=== PATIENT | female | born 1980 | race Two or more races ===

== ENCOUNTER → 2019-12-27 | Outpatient (CLI) | payer BC ==
--- NOTE | 2019-12-27 18:57 | KCIC ---
Bilateral digital screening mammograms: Reason for examination: Routine baseline screening. Interpretation was made with the benefit of CAD. The skin and nipples show no abnormalities. No abnormal axillary lymph nodes are seen. The breast parenchyma is extremely dense. (Breast density: Category D) There are clustered calcifications seen posterior laterally in the right breast on cc view possibly at the 7:00 position. Recommend further evaluation with coned magnification views in CC and true lateral projections. There are no other dominant masses, suspicious calcifications or architectural distortion. Additional scattered benign-appearing calcifications are seen. Impression: Clustered calcifications in the right breast posteriorly at the 7:00 position posteriorly. Recommend further evaluation with coned magnification views in CC and true lateral projections. Your patient's mammogram demonstrates that she has dense breast tissue (breast density category C or D), which could hide abnormalities, and if she has other risk factors for breast cancer that have been identified, she might benefit from supplemental screening tests that may be suggested by you as her ordering physician. Dense breast tissue, in and of itself, is a relatively common condition. Therefore, this information is not provided to cause undue concern, but rather to raise your awareness and to promote discussion with your patient regarding the presence of other risk factors, in addition to dense breast tissue. Your patient's mammography results will be sent to her. BI-RADS Category 0: Incomplete. Needs additional imaging evaluation. "Our facility is accredited by the [employer] Mammography [employer]." This patient's information has been entered into a reminder system for the patient to be notified with the results of her examination and a target date for the next mammogram. Electronically signed by: Shawna Aguilar MD (12/27/2019 6:54 PM) [email or web address]
== END | disposition home or self-care (01) ==
LOC: KCIC MAMMO 10:39
PROVIDERS: ATTEND Family Medicine
DX: Z12.31 Encounter for screening mammogram for malignant neoplasm of breast (principal); N64.89 Other specified disorders of breast
CPT/HCPCS: 77067

== ENCOUNTER → 2020-02-03 | Outpatient (CLI) | payer BC ==
--- NOTE | 2020-02-04 12:47 | KCIC ---
Right breast diagnostic digital mammograms: Reason for examination: Calcifications on screening mammogram. Comparison is made to mammographic exam dated 12/27/2019. Coned magnification views were obtained in CC and lateral projection. There are clustered calcifications at the 11:00 position anteriorly which do not layer and DCIS cannot be excluded. IMPRESSION: Clustered calcifications at the 11:00 position anteriorly in the right breast. Recommend further evaluation with stereotactic biopsy. BI-RADS Category 4: Suspicious. These findings were discussed with the patient and she was instructed to follow-up with her clinician and the patient's physician will be called and notified about these findings. "Our facility is accredited by the [employer] Mammography [employer]." Electronically signed by: Shawna Aguilar MD (02/04/2020 12:44 PM) [id number]
== END ==
LOC: KCIC MAMMO 12:58
PROVIDERS: ATTEND Nurse Practitioner Gerontology
DX: R92.1 Mammographic calcification found on diagnostic imaging of breast (principal)
CPT/HCPCS: 77065

== ENCOUNTER → 2020-03-06 | Outpatient (CLI) | payer BC ==
--- NOTE | 2020-03-06 16:20 | RAD ---
Examination: 1. Ultrasound-guided right breast core needle biopsy. 2. Periprocedural diagnostic right mammogram. INDICATION: 39-year-old woman with right breast calcifications recalled from baseline screening are recommended for biopsy. COMPARISON: Bilateral baseline screening mammogram of 12/27/2019 and right diagnostic mammogram of 02/03/2020. TECHNIQUE AND FINDINGS: Following review of the screening and right diagnostic mammogram, for periprocedural planning in order to optimizing the approach for tissue sampling if indicated, I elected to have a targeted ultrasound performed of the outer right breast in search of a sonographic correlate to the calcifications and for any mammographically occult solid masses that might also serve as amenable targets for core needle biopsy in this patient with extremely dense breasts. I found numerous cysts, some of which had layering echogenic reflectors suggestive of layering milk of calcium. In addition, at the right 11:00 position 1 cm from the nipple, a solid, mildly hypoechoic oval 8 mm mass was also identified with parallel orientation and indistinct margins that could represent a fibroadenoma but was mildly suspicious. For mammographic and sonographic correlation, I had the skin marked at the site of this sonographic finding and a BB placed over the skin marker with a true lateral view of the right breast and a tangential view obtained. True lateral view obtained today better demonstrated layering milk of calcium as expected for multiple cysts as seen on ultrasound. Therefore, pursuit of the calcifications for biopsy was deferred in favor of further evaluation of the sonographic mass which remain mammographically occult on the additional diagnostic views obtained at this visit. Therefore, I elected to proceed with biopsy of the sonographic finding following a discussion of the risks benefits and alternatives to the patient and obtaining her informed consent. Using standard sterile technique, ultrasound guidance and local anesthesia, I advanced a 14-gauge spring-loaded core needle biopsy to the mass and obtained 2 14-gauge core biopsy samples with use of a coaxial guide. There was some oozing from the needle guide that quickly resolved and the patient did experience minor discomfort during application of local anesthesia, all of which was adequately treated at the conclusion of local anesthetic application. I deployed in an S-shaped biopsy marker at the site of biopsy, and after ensuring hemostasis with direct breast compression for 10 minutes, we obtained a digital right post procedure mammogram in the CC and lateral projections that showed satisfactory deployment of the S-shaped biopsy marker in her extremely dense breast tissue in the upper-outer quadrant. IMPRESSION: Successful ultrasound-guided core needle biopsy of an 8 mm sonographic mass in the upper outer right breast. Pathology results are pending. An addendum will be issued once pathology results are available. Note that the calcifications initially recommended for biopsy on additional views at this visit show classic milk of calcium layering morphology on the lateral views obtained today and were therefore not targeted for biopsy. Electronically signed by: Samantha Vang MD (03/06/2020 4:17 PM) [id number]
--- NOTE | 2020-03-07 17:06 | PATHOLOGY ---
[facility] Accession Number: [id number] . 01 Material submitted: . breast - RIGHT BREAST NODULE 11:00 1CMFN 0.8CM. Modifiers: right, 11:00 . 01 Clinical history: . MICROCALCIFICATIONS RIGHT BREAST . 02 Diagnosis: Breast tissue, right breast nodule 11:00 needle biopsies: - Stromal fibrosis with focal fibroadenomatous change and rare microcalcifications identified. LBQ 03/07/2020 1636 Local . 02 Comment: There is no evidence of malignancy. (JPM/db; 03/07/2020) . 02 Electronically signed: . Francisco Morrissey MD, Pathologist NPI- [id number] . 01 Gross description: . The specimen is received in formalin, labeled "Abbey Springer, right breast". The specimen is additionally labeled on the requisition as, "right breast 11:00 1 cm from nipple". Received are two needle cores of fibrofatty tissue measuring 2.4 x 0.4 x 0.2 cm in aggregate dimensions. The specimen is submitted entirely in cassettes A1 and A2. The cold ischemic time is less than 1 minute. The total formalin fixation time is 10 hours. (CAA; 03/06/2020) QAC/QAC 03/06/2020 1743 Local . 02 Pathologist provided ICD-10: N60.31 . 02 CPT . 105490 Specimen Comment: A courtesy copy of this report has been sent to [phone] Specimen Comment: [id number], Specimen Comment: Report sent to ,DR RAPHAEL / DR NUNO Performed at: [address], [place], [place] [id number] MD Moi Ulloa MD Phone: [phone] Performed at: [address] [id number] MD Francisco Morrissey MD Phone: [phone]
== END | disposition home or self-care (01) ==
LOC: MAMMO 12:04
PROVIDERS: ATTEND Surgery
DX: R92.8 Other abnormal and inconclusive findings on diagnostic imaging of breast (principal)
CPT/HCPCS: 19083; 77065; 88305; C1713; 76942